=== PATIENT | male | born 1955 | race Caucasian/White ===

== ENCOUNTER 2017-08-29 21:16 | Observation (INO) | payer OTHER ==
[2017-08-29 21:18] VITALS: BP 148/81; PULSE 68; RESP 16; TEMP 98.5; O2SAT 97
[2017-08-29 22:10] VITALS: BP 188/89; PULSE 62; RESP 18; O2SAT 100
[2017-08-29] MEDS ORDERED: cefTRIAXone INJ 2,000 MG in SODIUM CHLORIDE 0.9% INJ 100 ML IV ONE (22:15)
[2017-08-29] MEDS ORDERED: SODIUM CHLOR 0.9% 1000 ML INJ 1,000 ML IV ONE (22:15)
[2017-08-29 22:34] VITALS: BP 176/83; PULSE 65; RESP 20; O2SAT 100
--- NOTE | 2017-08-29 22:35 | PD ---
HPI Chief Complaint: Headache Time Seen by Provider: 22:02 Travel History International Travel<30 days: No Contact w/Intl Traveler<30days: No Traveled to known affect area: No History of Present Illness HPI The patient is a 62 year old male who presents to the [facility] emergency department with a history of being told to come to the emergency department for treatment of viral meningitis. The patient reports a history of having a headache on last Tuesday that went away, however on Tuesday he then began to have low-grade fevers, chills, body aches, and headache that was unrelenting. He reports he has never had a headache like that previously. He reports that he has problems with neck pain that are chronic and were no worse than usual. He reports that he does have a history of an inflammatory arthritis treated with Plaquenil and methotrexate. The patient went to an emergency department in [place] where he currently is residing. The patient reports that he recently moved to the area. He reports that his primary care physician is Dr. Cy Vela area he has not established with a new primary care physician. The patient reports that he was admitted to the hospital and had a lumbar puncture done. He was told that he had a viral meningitis. The patient reports that he was discharged from the hospital, however he was called earlier today and told that he needed to come back immediately to the emergency department as his viral culture came back positive for herpes. He denies any rashes. He reports that his temperature at the highest was 99.6. He reports having nausea but no vomiting. He denies having any diarrhea. He denies having any cough or congestion. He denies having any sore throat. He reports that 2 years ago when he had general testing for sexually transmitted infections he did have an HSV2 antibody test that was positive. He denies having any outbreaks. On review of systems otherwise, the patient denies having any chest pain, shortness of breath, abdominal pain, urinary symptoms, one- sided weakness, slurred speech, paresthesias or numbness to the extremities, difficulty with word finding ability or facial droop. The patient reports that at the time of this headache began at its peak it is an 8 out of 10 in severity. He reports that the headache is down to 1-1/2 out of 10 in severity. 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 Arthritis: Yes Cancer: No Cardiovascular Problems: No Diabetes: No Diminished Hearing: No Endocrine: No Genitourinary: Yes (HX KIDNEY STONES X 3 EPISODES) Hepatitis: No Hiatal Hernia: No Immune Disorder: No Kidney Stones: Yes Musculoskeletal: Yes (L5 "BACK PROBLEMS"; DISK COMPRESSION - RIGHT SHOULDER TORN LABRUM) Neurologic: No Psychiatric: No Respiratory: No Immunizations Current: No Thyroid Disease: No Influenza Vaccination: No Past Surgical History Narrative Surgical The patient's past surgical history is significant for dental implants, tonsillectomy. Abdominal Surgery: No AICD: No Body Medical Devices: DENTAL IMPLANT X 2 Cardiac Surgery: No Ear Surgery: No Endocrine Surgery: No Eye Surgery: No Genitourinary Surgery: No Joint Replacement: No Oral Surgery: Yes (TONSILLECTOMY ) Pacemaker: No Thoracic Surgery: No Tonsillectomy: Yes Other Surgery: Yes Social History Alcohol Use: Yes ("seldom") Tobacco Use: No Substance Use: No Allergies-Medications (Allergen,Severity, Reaction): Coded Allergies: tramadol (Verified Allergy, Severe, Rash, 08/29/17) codeine (Unverified Adverse Reaction, Severe, GI UPSET/VOMITING X 24 HRS, 08/29/17) ITCHING Reported Meds & Prescriptions Reported Meds & Active Scripts Active Narrative Medication plaquenil, methotrexate Review of Systems Except as stated in HPI: all other systems reviewed are Neg General / Constitutional: Positive: Fever Eyes: No: Visual changes HENT: Positive: Headaches, Neck Pain, No: Neck Stiffness Cardiovascular: No: Chest Pain or Discomfort Respiratory: No: Shortness of Breath Gastrointestinal: Positive: Nausea, No: Abdominal Pain Genitourinary: No: Dysuria Musculoskeletal: No: Pain Skin: No Rash Neurologic: Positive: Headache, No: Weakness, Focal Abnormalities, Change in Mentation, Slurred Speech, Sensory Disturbance Psychiatric: No: Depression Endocrine: No: Polydipsia Hematologic/Lymphatic: No: Easy Bruising Physical Exam Narrative General: The patient is a well-developed well-nourished male in no acute distress. Head and Neck exam: Head is normocephalic atraumatic. Eyes: EOMI, pupils are equal round and reactive to light. Nose: Midline septum with pink mucous membranes Mouth: Dentition unremarkable. Moist mucus membranes. Posterior oropharynx is not erythematous. No tonsillar hypertrophy. Uvula midline. Airway patent. Neck: No palpable lymphadenopathy. No nuchal rigidity. No thyromegaly. No spinous process tenderness to palpation. No step-off or crepitus. No erythema or ecchymosis. Negative Brudzinski, negative Kernig sign. Cardiovascular: Regular rate and rhythm without murmurs, gallops, or rubs. Lungs: Clear to auscultation bilaterally. No wheezes, rhonchi, or rales. Abdomen: Soft, without tenderness to palpation in all 4 quadrants of the abdomen. No guarding, rebound, or rigidity. Normal bowel sounds are audible. No tenderness on palpation of McBurney's point. Extremities: No clubbing, cyanosis, or edema. 2+ pulses in all 4 extremities. No calf tenderness on palpation. Back: No spinous process tenderness to palpation. No costovertebral angle tenderness to palpation. Neurologic Exam: Grossly nonfocal. Skin Exam: No rash noted. Intact skin that is warm and dry. Data Data Last Documented VS Vital Signs Date Time Temp Pulse Resp B/P (MAP) Pulse Ox O2 Delivery O2 Flow Rate FiO2 08/29/17 22:34 65 20 176/83 (114) 100 Room Air 08/29/17 21:18 98.5 Orders Orders Electrocardiogram (08/29/17 22:03) Complete Blood Count With Diff (08/29/17 22:03) Comprehensive Metabolic Panel (08/29/17 22:03) Troponin I (08/29/17 22:03) Prothrombin Time / Inr (Pt) (08/29/17 22:03) Act Partial Throm Time (Ptt) (08/29/17 22:03) Blood Culture (08/29/17 22:03) C-Reactive Protein (Crp) (08/29/17 22:03) Lipase (08/29/17 22:03) Urinalysis - C+S If Indicated (08/29/17 22:03) Magnesium (Mg) (08/29/17 22:03) Chest, Single Ap (08/29/17 22:03) Iv Access Insert/Monitor (08/29/17 22:03) Ecg Monitoring (08/29/17 22:03) Oximetry (08/29/17 22:03) Lactic Acid Sepsis Protocol (08/29/17 22:03) Ceftriaxone Inj (Rocephin Inj) (08/29/17 22:15) Sodium Chlor 0.9% 1000 Ml Inj (Ns 1000 M (08/29/17 22:15) Acyclovir Inj (Zovirax Inj) (08/29/17 22:45) Admit Order (Ed Use Only) (08/29/17 22:43) Place In Observation (08/29/17 ) Vital Signs (Adult) [id number] (08/29/17 22:47) Diet Regular Basic (08/30/17 Breakfast) Activity Oob Ad Esperanza (08/29/17 22:47) Acyclovir Inj (Zovirax Inj) (08/30/17 08:00) Labs Laboratory Tests Test 08/29/17 22:20 08/29/17 22:35 08/29/17 22:45 White Blood Count 11.0 TH/MM3 Red Blood Count 4.83 MIL/MM3 Hemoglobin 15.2 GM/DL Hematocrit 43.8 % Mean Corpuscular Volume 90.7 FL Mean Corpuscular Hemoglobin 31.4 PG Mean Corpuscular Hemoglobin Concent 34.6 % Red Cell Distribution Width 13.6 % Platelet Count 297 TH/MM3 Mean Platelet Volume 7.4 FL Neutrophils (%) (Auto) 69.5 % Lymphocytes (%) (Auto) 20.1 % Monocytes (%) (Auto) 8.2 % Eosinophils (%) (Auto) 1.5 % Basophils (%) (Auto) 0.7 % Neutrophils # (Auto) 7.7 TH/MM3 Lymphocytes # (Auto) 2.2 TH/MM3 Monocytes # (Auto) 0.9 TH/MM3 Eosinophils # (Auto) 0.2 TH/MM3 Basophils # (Auto) 0.1 TH/MM3 CBC Comment DIFF FINAL Differential Comment Prothrombin Time 10.5 SEC Prothromb Time International Ratio 1.0 RATIO Activated Partial Thromboplast Time 26.1 SEC Blood Urea Nitrogen 16 MG/DL Creatinine 0.97 MG/DL Random Glucose 100 MG/DL Total Protein 7.3 GM/DL Albumin 3.6 GM/DL Calcium Level 8.9 MG/DL Magnesium Level 2.1 MG/DL Alkaline Phosphatase 74 U/L Aspartate Amino Transf (AST/SGOT) 19 U/L Alanine Aminotransferase (ALT/SGPT) 28 U/L Total Bilirubin 0.5 MG/DL Sodium Level 136 MEQ/L Potassium Level 3.8 MEQ/L Chloride Level 104 MEQ/L Carbon Dioxide Level 25.5 MEQ/L Anion Gap 7 MEQ/L Estimat Glomerular Filtration Rate 78 ML/MIN Troponin I LESS THAN 0.02 NG/ML C-Reactive Protein 0.78 MG/DL Lipase 90 U/L Lactic Acid Level 0.7 mmol/L Urine Color YELLOW Urine Turbidity CLEAR Urine pH 5.0 Urine Specific [place] 1.021 Urine Protein TRACE mg/dL Urine Glucose (UA) NEG mg/dL Urine Ketones NEG mg/dL Urine Occult Blood NEG Urine Nitrite NEG Urine Bilirubin NEG Urine Urobilinogen LESS THAN 2.0 MG/DL Urine Leukocyte Esterase NEG Urine RBC LESS THAN 1 /hpf Urine WBC 2 /hpf Urine Mucus FEW /lpf Microscopic Urinalysis Comment CULT NOT INDICATED MDM Medical Decision Making Medical Screen Exam Complete: Yes Emergency Medical Condition: Yes Medical Record Reviewed: Yes Interpretation(s) Last Impressions Chest X-Ray 08/29/172202 Signed Impressions: Service Date/Time: Tuesday, August 29, 2017 22:09 - CONCLUSION: No acute abnormality is seen. Focal densities are seen over the bases likely related to nipple shadows. These could be further evaluated with a repeat chest x-ray with nipple markers. Mario Cid MD Differential Diagnosis Viral meningitis, versus HSV encephalitis Narrative Course During the course of the patients emergency department visit, the patients history, examination, and differential diagnosis were reviewed with the patient. The patient had IV access obtained and blood work sent for analysis. The patient was placed on a slusher operator with oximetry and blood pressure monitoring. An ECG was done on arrival. The patient's ECG shows a sinus rhythm heart rate of 61, no acute ST segment elevation or depression. T waves are inverted in V1. The patient's records will be obtained from the facility that did the lumbar puncture. A call was placed out to the patient's primary care physician. I did speak to Dr. Vela. He is familiar with the patient as well as the patient's recent history of the patient did call his office regarding his recent admission. He agreed to admit the patient for continued evaluation and treatment. The patient was initially provided acyclovir 10 mg/kg IV times first dose, Rocephin 2 g IV were also administered while records were obtained from the other facility to corroborate negative bacterial cultures on this patient's lumbar puncture. The patients laboratory studies were reviewed and remarkable for a white count of 11, hemoglobin 15.2, platelets 297 with 8.2 monocytes, CMP is remarkable for a GFR 78, lactic acid 0.7, troponin I less than 0.02, C-reactive protein 0.78, lipase 90, PT PTT within normal limits. Urinalysis is unremarkable. Radiology studies were reviewed and remarkable for a chest x-ray that shows no acute abnormality. The patients results were discussed with the patient, including the plan of care. I explained that further testing and/ or monitoring is indicated based on the patients history, examination, and/ or laboratory findings. Therefore, I recommended admission for additional evaluation. The patient expressed understanding and was agreeable with this plan. The patient was admitted to the hospital in stable condition and [facility] Physician Communication Physician Communication The patient's case is discussed with Dr. Vela he did agree to admit the patient for further evaluation and treatment at this time. Diagnosis Primary Impression: Herpes encephalitis Admitting Information Admitting Physician Requests: Admit Caroline Garcia MD Aug 29, 2017 22:35
[2017-08-29] MEDS ORDERED: ACYCLOVIR IV ONE (22:45)
[2017-08-29] MEDS ORDERED: SODIUM CHLORIDE 0.9% IV ONE (22:45)
--- NOTE | 2017-08-29 22:54 | RADRPT ---
EXAM DATE/TIME: 08/29/2017 22:09 [facility] COMPARISON: No previous studies available for comparison. INDICATIONS : Cough and headache. MEDICAL HISTORY : None. SURGICAL HISTORY : None. ENCOUNTER: Initial ACUITY: 1 day PAIN SCORE: 0/10 LOCATION: Bilateral chest FINDINGS: The heart size is normal. The lungs are free of focal consolidation. There are questionable focal den sities projecting over the bases bilaterally. These symmetric densities are likely related to nipple shadows. No effusion is seen. CONCLUSION: No acute abnormality is seen. Focal densities are seen over the bases likely related to nipple shadow s. These could be further evaluated with a repeat chest x-ray with nipple markers. Mario Cid MD on August 29, 2017 at 22:50 Board Certified Radiologist. This report was verified electronically.
[2017-08-29 22:59] LABS: AUTOMATED NEUTROPHIL # 7.7 TH/MM3 (1.8-7.7); BASOPHIL # 0.1 TH/MM3 (0-0.2); BASOPHIL % 0.7 % (0.0-2.0); EOSINOPHIL # 0.2 TH/MM3 (0-0.4); EOSINOPHIL % 1.5 % (0.0-4.0); HEMATOCRIT 43.8 % (39.0-51.0); HEMO FLAGS DIFF FINAL; LYMPH % 20.1 % (9.0-44.0); LYMPHOCYTE # 2.2 TH/MM3 (1.0-4.8); MEAN CELL VOLUME 90.7 FL (80.0-100.0); MEAN CORPUSCULAR HEMOGLOBIN 31.4 PG (27.0-34.0); MEAN CORPUSCULAR HGB CONC 34.6 % (32.0-36.0); MONO % 8.2 % (0.0-8.0); NEUT % 69.5 % (16.0-70.0); PLATELET COUNT 297 TH/MM3 (150-450); RED BLOOD COUNT 4.83 MIL/MM3 (4.50-5.90); RED CELL DISTRIBUTION WIDTH 13.6 % (11.6-17.2)
[2017-08-29] MEDS ORDERED: cloNIDine HCL 0.1 MG TAB PO PRN (23:00)
[2017-08-29] MEDS ORDERED: ACETAMINOPHEN 500 MG CPLT PO PRN (23:00)
[2017-08-29] MEDS ORDERED: TEMAZEPAM 15 MG CAP PO PRN (23:00)
[2017-08-29 23:03] LABS: BLOOD, URINE NEG (NEG); COMMENT (UR) CULT NOT INDICATED; CULTURE IF INDICATED CULT NOT INDICATED; GLUCOSE,URINE NEG (NEG); KETONE, URINE NEG (NEG); MUCUS URINE FEW /lpf (OCC); NITRITE,URINE NEG (NEG); URINE COLOR YELLOW (YELLW/STRAW)
[2017-08-29 23:10] LABS: APTT (PATIENT) 26.1 SEC (24.3-30.1); PROTHROMBIN TIME - PATIENT 10.5 SEC (9.8-11.6)
[2017-08-29 23:33] LABS: ALKALINE PHOSPHATASE 74 U/L (45-117); TOTAL BILIRUBIN ADULT 0.5 MG/DL (0.2-1.0)
[2017-08-29 23:37] LABS: ALT (GPT) 28 U/L (12-78); ANION GAP 7 MEQ/L (5-15); AST (GOT) 19 U/L (15-37); BICARBONATE 25.5 MEQ/L (21.0-32.0); BLOOD UREA NITROGEN 16 MG/DL (7-18); CHLORIDE 104 MEQ/L (98-107); GLOMERULAR FILTRATION RATE 78 ML/MIN (>89); MAGNESIUM 2.1 MG/DL (1.5-2.5); POTASSIUM 3.8 MEQ/L (3.5-5.1); SODIUM (NA) 136 MEQ/L (136-145)
[2017-08-30 00:44] VITALS: BP 148/83; PULSE 57; RESP 19; TEMP 97.7; O2SAT 100
[2017-08-30 03:20] VITALS: BP 143/81; PULSE 62; RESP 19; TEMP 98.1; O2SAT 99
[2017-08-30 07:57] VITALS: BP 141/79; PULSE 55; RESP 18; TEMP 97.6; O2SAT 99
--- NOTE | 2017-08-30 08:28 | HHI.HP ---
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 Patient was in his normal state of health until last Tuesday when he began to have a headache, generalized malaise with nausea and headache. The headache initially resolved then returned on Tuesday. Patient had a constant headache from Tuesday through Tuesday described as severe like no headache he has ever had before with associated chills therefore who proceeded to the emergency department in [place]. Patient was hospitalized had a lumbar puncture initially discharged with the diagnosis of viral meningitis. Patient then received a call from hospital in [place] telling him that the lumbar puncture was positive for herpes simplex virus requesting him to come back to the hospital for PICC line placement and IV acyclovir. Patient reports he knows the doctors in this area as he is from this area and came here for further evaluation and treatment. Acyclovir IV was started in the emergency department. At this time patient reports he feeling well no longer has headache, fevers, chills, nausea or vomiting. Patient also denies shortness of breath or chest pain. Review of Systems Constitutional: DENIES: Fatigue, Fever, Chills Eyes: DENIES: Blurred vision, Diplopia, Eye pain, Vision loss, Photosensitivity , Double Vision Ears, nose, mouth, throat: DENIES: Hearing loss, Vertigo, Throat pain Respiratory: DENIES: Cough, Sputum production, Shortness of breath Cardiovascular: DENIES: Chest pain, Palpitations, Dyspnea on Exertion Gastrointestinal: DENIES: Abdominal pain, Constipation, Diarrhea Musculoskeletal: DENIES: Joint pain, Back pain, Neck pain Neurologic: DENIES: Abnormal gait, Headache, Localized weakness, Speech Problems Psychiatric: DENIES: Anxiety, Confusion, Depression Past Family Social History Past Medical History 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, degenerative disc disease s/p L5 discectomy, kidney stones and inflammatory arthritis currently taking Plaquenil and methotrexate Past Surgical History L5 discectomy, dental implants and tonsillectomy Reported Medications Plaquenil 200 mg twice a day Methotrexate 6 mg IM once a week Folic acid 1 mg 6 days a week on the days he does not take the Methotrexate Allergies: Coded Allergies: tramadol (Verified Allergy, Severe, Rash, 08/29/17) codeine (Unverified Adverse Reaction, Severe, GI UPSET/VOMITING X 24 HRS, 08/29/17) ITCHING Active Ordered Medications Current Medications Medications (Trade) Dose Ordered Sig/Darshan Route Start Time Stop Time Status Last Admin Acyclovir Sodium 820 mg/Sodium Chloride 150 ml @ 150 mls/hr Q8H IV 08/30/17 08:00 (Catapres) 0.1 mg Q6H PRN PO 08/29/17 23:00 (Restoril) 15 mg HS PRN PO 08/29/17 23:00 (Tylenol) 500 mg Q6H PRN PO 08/29/17 23:00 Family History Father at 71 secondary to pancreatic cancer Mother is 94 alive does have some history of heart disease Social History Patient from [facility] currently living in [facility] EtOH use approximately one drink per month Denies tobacco use now or in the past Denies illicit drug use Physical Exam Vital Signs Vital Signs Date Time Temp Pulse Resp B/P (MAP) Pulse Ox O2 Delivery O2 Flow Rate FiO2 08/30/17 07:57 97.6 55 18 141/79 (99) 99 08/30/17 03:20 98.1 62 19 143/81 (101) 99 08/30/17 00:44 97.7 57 19 148/83 (104) 100 08/29/17 22:34 65 20 176/83 (114) 100 Room Air 08/29/17 22:10 62 18 188/89 (122) 100 Room Air 08/29/17 21:18 98.5 68 16 148/81 (103) 97 Room Air Physical Exam GENERAL: This is a well-nourished, well-developed patient, in no apparent distress. SKIN: No rashes, ecchymoses or lesions. Cool and dry. HEAD: Atraumatic. Normocephalic. No temporal or scalp tenderness. EYES: Extraocular motions intact. No scleral icterus. No injection or drainage. ENT: Nose without bleeding, purulent drainage or septal hematoma. Throat without erythema, tonsillar hypertrophy or exudate. Uvula midline. Airway patent. NECK: Trachea midline. No JVD or lymphadenopathy. Supple, nontender, no meningeal signs. CARDIOVASCULAR: Bradycardic without murmurs, gallops, or rubs. RESPIRATORY: Clear to auscultation. Breath sounds equal bilaterally. No wheezes , rales, or rhonchi. GASTROINTESTINAL: Abdomen soft, non-tender, nondistended. No hepato-splenomegaly , or palpable masses. No guarding. MUSCULOSKELETAL: Extremities without clubbing, cyanosis, or edema. No joint tenderness, effusion, or edema noted. No calf tenderness. Negative Homans sign bilaterally. NEUROLOGICAL: Awake and alert. No focal deficits appreciated. Motor and sensory grossly within normal limits. Five out of 5 muscle strength in all muscle groups. Normal speech. Laboratory Laboratory Tests Test 08/29/17 22:20 08/29/17 22:35 08/29/17 22:45 White Blood Count 11.0 Red Blood Count 4.83 Hemoglobin 15.2 Hematocrit 43.8 Mean Corpuscular Volume 90.7 Mean Corpuscular Hemoglobin 31.4 Mean Corpuscular Hemoglobin Concent 34.6 Red Cell Distribution Width 13.6 Platelet Count 297 Mean Platelet Volume 7.4 Neutrophils (%) (Auto) 69.5 Lymphocytes (%) (Auto) 20.1 Monocytes (%) (Auto) 8.2 Eosinophils (%) (Auto) 1.5 Basophils (%) (Auto) 0.7 Neutrophils # (Auto) 7.7 Lymphocytes # (Auto) 2.2 Monocytes # (Auto) 0.9 Eosinophils # (Auto) 0.2 Basophils # (Auto) 0.1 CBC Comment DIFF FINAL Differential Comment Prothrombin Time 10.5 Prothromb Time International Ratio 1.0 Activated Partial Thromboplast Time 26.1 Blood Urea Nitrogen 16 Creatinine 0.97 Random Glucose 100 Total Protein 7.3 Albumin 3.6 Calcium Level 8.9 Magnesium Level 2.1 Alkaline Phosphatase 74 Aspartate Amino Transf (AST/SGOT) 19 Alanine Aminotransferase (ALT/SGPT) 28 Total Bilirubin 0.5 Sodium Level 136 Potassium Level 3.8 Chloride Level 104 Carbon Dioxide Level 25.5 Anion Gap 7 Estimat Glomerular Filtration Rate 78 Troponin I LESS THAN 0.02 C-Reactive Protein 0.78 Lipase 90 Lactic Acid Level 0.7 Urine Color YELLOW Urine Turbidity CLEAR Urine pH 5.0 Urine Specific [place] 1.021 Urine Protein TRACE Urine Glucose (UA) NEG Urine Ketones NEG Urine Occult Blood NEG Urine Nitrite NEG Urine Bilirubin NEG Urine Urobilinogen LESS THAN 2.0 Urine Leukocyte Esterase NEG Urine RBC LESS THAN 1 Urine WBC 2 Urine Mucus FEW Microscopic Urinalysis Comment CULT NOT INDICATED Date/Time Source Procedure Growth Status 08/29/17 22:35 Blood Peripheral Aerobic Blood Culture Pending Received 08/29/17 22:35 Blood Peripheral Anaerobic Blood Culture Pending Received Result Diagram: 08/29/17221908/29/172219 Imaging Last Impressions Chest X-Ray 08/29/172202 Signed Impressions: Service Date/Time: Tuesday, August 29, 2017 22:09 - CONCLUSION: No acute abnormality is seen. Focal densities are seen over the bases likely related to nipple shadows. These could be further evaluated with a repeat chest x-ray with nipple markers. MD Ranjit Meek VTE Risk Assessment Caprini VTE Risk Assessment: No/Low Risk (score <= 1) Caprini Risk Assessment Model Point Value = 1 Point Value = 2 Point Value = 3 Point Value = 5 Age 41-60 Minor surgery BMI > 25 kg/m2 Swollen legs Varicose veins or History of unexplained or recurrent spontaneous Oral contraceptives or hormone replacement Sepsis (< 1 month) Serious lung disease, including pneumonia (< 1 month) Abnormal pulmonary function Acute myocardial infarction Congestive heart failure (< 1 month) History of inflammatory bowel disease Medical patient at bed rest Age 61-74 Arthroscopic surgery Major open surgery (> 45 min) Laparoscopic surgery (> 45 min) Malignancy Confined to bed (> 72 hours) Immobilizing plaster cast Central venous access Age >= 75 History of VTE Family history of VTE Factor V Leiden Prothrombin [id number] Lupus anticoagulant Anticardiolipin antibodies Elevated serum homocysteine Heparin-induced thrombocytopenia Other congenital or acquired thrombophilia Stroke (< 1 month) Elective arthroplasty Hip, pelvis, or leg fracture Acute spinal cord injury (< 1 month) Prophylaxis Regimen Total Risk Factor Score Risk Level Prophylaxis Regimen 0-1 Low Early ambulation 2 Moderate Order ONE of the following: *Sequential Compression Device (SCD) *Heparin 5000 units SQ BID 3-4 Higher Order ONE of the following medications: *Heparin 5000 units SQ TID *Enoxaparin/Lovenox 40 mg SQ daily (WT < 150 kg, CrCl > 30 mL/min) *Enoxaparin/Lovenox 30 mg SQ daily (WT < 150 kg, CrCl > 10-29 mL/min) *Enoxaparin/Lovenox 30 mg SQ BID (WT < 150 kg, CrCl > 30 mL/min) AND/OR *Sequential Compression Device (SCD) 5 or more Highest Order ONE of the following medications: *Heparin 5000 units SQ TID (Preferred with Epidurals) *Enoxaparin/Lovenox 40 mg SQ daily (WT < 150 kg, CrCl > 30 mL/min) *Enoxaparin/Lovenox 30 mg SQ daily (WT < 150 kg, CrCl > 10-29 mL/min) *Enoxaparin/Lovenox 30 mg SQ BID (WT < 150 kg, CrCl > 30 mL/min) AND *Sequential Compression Device (SCD) Assessment and Plan Problem List: (1) Meningitis due to herpes simplex virus ICD Codes: B00.3 - Herpesviral meningitis Plan: 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 Patient then received a call from hospital in [place] telling him that the lumbar puncture was positive for herpes simplex virus requesting him to come back to the hospital for PICC line placement and IV acyclovir. Patient reports he knows the doctors in this area as he is from this area and came here for further evaluation and treatment. - Records reviewed from [facility]- lumbar puncture reveals a CSF positive for herpes simplex virus type II - Acyclovir IV was started in the emergency department. (08/29) - Continue acyclovir IV every 8 hours - Supportive care - Monitor neuro status Inflammatory arthritis - Patient takes Platinol and methotrexate at home will hold at this time due to immunosuppression - Continue folic acid - Tylenol as needed for pain Degenerative disc disease status post L5 discectomy - Patient is not in pain at this time - Continue to monitor DVT prophylaxis with SCDs and Harlan's After PICC line placed plan to DC home with home healthcare and IV acyclovir Q8H x 14 days (2) Inflammatory arthritis ICD Codes: M19.90 - Unspecified osteoarthritis, unspecified site (3) DDD (degenerative disc disease), lumbar ICD Codes: M51.36 - Other intervertebral disc degeneration, lumbar region Assessment and Plan Patient examined. Assessment and plan formulated with Rona Haq PA-C. I agree with the above. apparently herpes meningitis based on outside hospital csf results and presentation. possible encephalitis but now pt is totally oriented and h/a absent. I discussed with our ID physicians and pcp. We will get mri brain, picc line, plan for 2 weeks iv acyclovir with [facility] and then an additional week of valtrex. Will have ID f/u and pcp f/u this week. Pt agrees to plan. of note the pt had blood cx at outside hospital and they were negative. we have no reason to hold up picc placement. We don't suspect bacteremia. will notify picc team. Rona Haq Aug 30, 2017 08:28 David Velasquez MD Aug 30, 2017 14:48
[2017-08-30] MEDS: ACYCLOVIR IV SCH ×2 (09:17→17:30)
[2017-08-30] MEDS: SODIUM CHLORIDE 0.9% IV SCH ×2 (09:17→17:30)
--- NOTE | 2017-08-30 10:05 | HHI.FF ---
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 My clinical findings support the need for the requested home health care services because: Patient need IV medication Q8H Infection w/ risk of complications Injectable med education/admin I certify that my clinical findings support that this patient is homebound because: Patient will need IV medication Q8H for 2 weeks Impaired cognitive ability/safety Rona Hqa Aug 30, 2017 10:05
[2017-08-30 11:45] VITALS: BP 130/75; PULSE 61; TEMP 98; O2SAT 99
[2017-08-30] MEDS ORDERED: GADODIAMIDE PF 287 MG/ML 20 ML VIAL (for RAD MRI) IVCONTRAST ONE (12:16)
--- NOTE | 2017-08-30 12:33 | RADRPT ---
EXAM DATE/TIME: 08/30/2017 12:00 [facility] COMPARISON: No previous studies available for comparison. INDICATIONS : Meningitis. Cephalgia for 9 days. CONTRAST: 16 cc Omniscan (gadodiamide) IV MEDICAL HISTORY : Renal calculi. Herpes type II. Degenerative disc disease. SURGICAL HISTORY : Tonsillectomy. Discectomy, lumbar. ENCOUNTER: Subsequent ACUITY: 1 week PAIN SCORE: 6/10 LOCATION: head. TECHNIQUE: Multiplanar, multisequence MRI of the brain was performed both prior to and following the administrat ion of paramagnetic contrast. FINDINGS: CEREBRUM: The ventricles are normal for age. No evidence of midline shift, mass lesion, hemorrhage or acute in farction. No extraaxial fluid collections are seen. The pituitary gland and suprasellar cistern are normal in configuration. WHITE MATTER: No significant signal abnormalities are seen in the white matter. POSTERIOR FOSSA: The cerebellum and brainstem are intact. The 4th ventricle is midline. The cerebellopontine angle is unremarkable. The cerebellar tonsils are normal in position. DIFFUSION IMAGING: No focal areas of restricted diffusion are seen. No evidence of acute infarction. EXTRACRANIAL: Small mucous retention cyst in the left maxillary sinus. Orbits unremarkable. POST-CONTRAST: No abnormal areas of parenchymal or dural enhancement. No evidence of blood-brain barrier breakdown. CONCLUSION: No acute intracranial findings Mario Mcintyre MD on August 30, 2017 at 12:28 Board Certified Radiologist. This report was verified electronically.
--- NOTE | 2017-08-30 14:13 | HHI.FF ---
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 [] May leave port accessed during therapy. [] May leave peripheral site accessed for duration of therapy. [x] If patient has SOB or respiratory distress, check oxygen saturation. If less than 90% or clinical signs of respiratory distress, administer oxygen at 2 L/min. via nasal cannula and notify physician. [x] Anaphylaxis/Reaction orders: * Stop infusion. * Keep IV line open with saline flush. * Notify physician. * Monitor vital signs every 15 minutes until symptoms resolve. * Check Oxygen saturation; Oxygen at 2 L/min. via nasal cannula if less than 90% or clinical signs of respiratory distress. * Administer diphenhydramine (Benadryl) 25 mg IV STAT, (unless patient has received as pre-med). May repeat once, if necessary. * Solu-Cortef 250 mg IVP over 30-60 seconds, use 100 mg vials for each dissolution. * Epinephrine (1mg/1 ml) 0.3 mg subcutaneously or IVP now with any signs of respiratory distress. * Check with physician for new additional pre-med orders if patient is re- challenged or re-treated. [x] May remove PICC line when treatment complete, after confirming with Physician. [x] If the patient is admitted to the hospital, the ED, or transferred via [facility] , complete transfer form including medication reconciliation order sheet. Laboratory Tests Weekly Labs: CBC w/diff, CMP Eva,David L MD Aug 30, 2017 14:12
[2017-08-30 16:03] VITALS: BP 132/75; PULSE 61; RESP 18; TEMP 98.1; O2SAT 98
--- NOTE | 2017-08-30 16:34 | EKG ---
Date Performed: 08/29/2017 Time Performed: 22:29:23 PTAGE: 62 years EKG: Sinus rhythm NORMAL ECG NO PREVIOUS TRACING DOCTOR: Samantha Hernández Interpretating Date/Time 08/30/2017 16:32:57
[2017-08-30 20:06] VITALS: BP 120/66; PULSE 62; RESP 20; TEMP 98; O2SAT 98
[2017-08-31 00:13] VITALS: BP 117/66; PULSE 55; RESP 19; TEMP 97.7; O2SAT 98
[2017-08-31] MEDS: SODIUM CHLORIDE 0.9% IV SCH ×2 (01:00→08:51)
[2017-08-31] MEDS: ACYCLOVIR IV SCH ×2 (01:00→08:51)
[2017-08-31 03:38] VITALS: BP 122/67; PULSE 57; RESP 18; TEMP 98.1; O2SAT 98
[2017-08-31 07:13] VITALS: BP 126/78; PULSE 59; RESP 20; TEMP 97.6; O2SAT 97
--- NOTE | 2017-08-31 08:09 | HHI.PR ---
Subjective Remarks Pt complains this morning of a slight global headache but he thinks that this may be a caffeine headache because he typically drinks several cups of coffee in the morning but hasn't had more than one cup in the last 2 days. Denies any chills, fevers, nausea/vomiting. Objective Vitals Vital Signs Date Time Temp Pulse Resp B/P (MAP) Pulse Ox O2 Delivery O2 Flow Rate FiO2 08/31/17 07:13 97.6 59 20 126/78 (94) 97 08/31/17 03:38 98.1 57 18 122/67 (85) 98 08/31/17 00:13 97.7 55 19 117/66 (83) 98 08/30/17 20:06 98.0 62 20 120/66 (84) 98 08/30/17 16:03 98.1 61 18 132/75 (94) 98 08/30/17 11:45 98.0 61 130/75 (93) 99 Result Diagram: 08/29/170 08/29/17 2220 Other Results Laboratory Tests Test 08/29/17 22:20 08/29/17 22:35 08/29/17 22:45 White Blood Count 11.0 TH/MM3 Red Blood Count 4.83 MIL/MM3 Hemoglobin 15.2 GM/DL Hematocrit 43.8 % Mean Corpuscular Volume 90.7 FL Mean Corpuscular Hemoglobin 31.4 PG Mean Corpuscular Hemoglobin Concent 34.6 % Red Cell Distribution Width 13.6 % Platelet Count 297 TH/MM3 Mean Platelet Volume 7.4 FL Neutrophils (%) (Auto) 69.5 % Lymphocytes (%) (Auto) 20.1 % Monocytes (%) (Auto) 8.2 % Eosinophils (%) (Auto) 1.5 % Basophils (%) (Auto) 0.7 % Neutrophils # (Auto) 7.7 TH/MM3 Lymphocytes # (Auto) 2.2 TH/MM3 Monocytes # (Auto) 0.9 TH/MM3 Eosinophils # (Auto) 0.2 TH/MM3 Basophils # (Auto) 0.1 TH/MM3 CBC Comment DIFF FINAL Differential Comment Prothrombin Time 10.5 SEC Prothromb Time International Ratio 1.0 RATIO Activated Partial Thromboplast Time 26.1 SEC Blood Urea Nitrogen 16 MG/DL Creatinine 0.97 MG/DL Random Glucose 100 MG/DL Total Protein 7.3 GM/DL Albumin 3.6 GM/DL Calcium Level 8.9 MG/DL Magnesium Level 2.1 MG/DL Alkaline Phosphatase 74 U/L Aspartate Amino Transf (AST/SGOT) 19 U/L Alanine Aminotransferase (ALT/SGPT) 28 U/L Total Bilirubin 0.5 MG/DL Sodium Level 136 MEQ/L Potassium Level 3.8 MEQ/L Chloride Level 104 MEQ/L Carbon Dioxide Level 25.5 MEQ/L Anion Gap 7 MEQ/L Estimat Glomerular Filtration Rate 78 ML/MIN Troponin I LESS THAN 0.02 NG/ML C-Reactive Protein 0.78 MG/DL Lipase 90 U/L Lactic Acid Level 0.7 mmol/L Urine Color YELLOW Urine Turbidity CLEAR Urine pH 5.0 Urine Specific [place] 1.021 Urine Protein TRACE mg/dL Urine Glucose (UA) NEG mg/dL Urine Ketones NEG mg/dL Urine Occult Blood NEG Urine Nitrite NEG Urine Bilirubin NEG Urine Urobilinogen LESS THAN 2.0 MG/DL Urine Leukocyte Esterase NEG Urine RBC LESS THAN 1 /hpf Urine WBC 2 /hpf Urine Mucus FEW /lpf Microscopic Urinalysis Comment CULT NOT INDICATED Imaging Last Impressions Brain MRI 08/30/17 0000 Signed Impressions: Service Date/Time: Wednesday, August 30, 2017 12:00 - CONCLUSION: No acute intracranial findings Mario Mcintyre MD Chest X-Ray 08/29/172202 Signed Impressions: Service Date/Time: Tuesday, August 29, 2017 22:09 - CONCLUSION: No acute abnormality is seen. Focal densities are seen over the bases likely related to nipple shadows. These could be further evaluated with a repeat chest x-ray with nipple markers. 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 He then received a call from hospital in [place] telling him that the lumbar puncture was positive for herpes simplex virus requesting him to come back to the hospital for PICC line placement and IV acyclovir. - Records reviewed from [facility]- lumbar puncture reveals a CSF positive for herpes simplex virus type II - Pt presented to the ED at [facility] on 08/29 for IV acyclovir for possible encephalitis but now pt is totally oriented. - Acyclovir IV was started in the emergency department on (08/29) - Continue acyclovir IV every 8 hours - Of note the pt had blood cx at outside hospital and they were negative. We have no reason to hold up PICC placement. We don't suspect bacteremia. - Awaiting PICC line placement today - The case was discussed between Dr. Velasquez and our ID physicians and PCP. - MRI Brain (08/30) is negative. - Pt will need outpt ID f/u and pcp f/u this week. - We will arrange for C for IV Acyclovir x 2 weeks and then an additional week of Valtrex - Supportive care - Monitor neuro status DVT prophylaxis with SCDs and Harlan's (2) Inflammatory arthritis ICD Codes: M19.90 - Unspecified osteoarthritis, unspecified site Status: Chronic Plan: - Patient takes Platinol and methotrexate at home will hold at this time due to immunosuppression - Continue folic acid - Tylenol as needed for pain (3) DDD (degenerative disc disease), lumbar ICD Codes: M51.36 - Other intervertebral disc degeneration, lumbar region Status: Chronic Plan: - Patient is not in pain at this time - Continue to monitor Assessment and Plan Patient examined. Assessment and plan formulated with Tonie Villalba PA-C. I agree with the above. herpes type 2 meningitis/encephalitis. d/c with h[facility], picc, acyclovir for at least 2 weeks then probably another week of valtrex. Pt feels well. MRI brain neg. Labs from outside hospital confirm the positive test. Tonie Villalba Aug 31, 2017 08:08 David Velasquez MD Aug 31, 2017 15:21
--- NOTE | 2017-08-31 11:02 | RADRPT ---
EXAM DATE/TIME: 08/31/2017 10:16 [facility] COMPARISON: CHEST SINGLE AP, August 29, 2017, 22:09. INDICATIONS : Post PICC line placement. MEDICAL HISTORY : Renal calculi. Herpes type II. Degenerative disc disease. SURGICAL HISTORY : Tonsillectomy. Discectomy, lumbar. ENCOUNTER: Subsequent ACUITY: 1 day PAIN SCORE: 0/10 LOCATION: Bilateral chest FINDINGS: Right arm PICC line is present in good position with tip overlying SVC. Lungs appear grossly clear. T here is no evidence of effusion. Cardiac contours are satisfactory. CONCLUSION: Satisfactory PICC line position. Mario Mcintyre MD on August 31, 2017 at 10:58 Board Certified Radiologist. This report was verified electronically.
--- NOTE | 2017-08-31 11:10 | HHI.DCPOC ---
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 Vela on 09/02/17 @ 10:45AM - Dr. Vela is arranging followup with Dr. Farideh Person. Directions to Meet Your Goals Take your medications as prescribed Follow your dietary instruction Follow activity as directed Keep your appointments as scheduled Take your immunizations and boosters as scheduled If your symptoms worsen call your PCP, if no PCP go to Urgent Care Center or Emergency Room Smoking is Dangerous to Your Health. Avoid second hand smoke Call the 24-hour hour crisis hotline for domestic abuse at Tonie Villalba Aug 31, 2017 11:10
[2017-08-31 11:20] VITALS: BP 135/74; PULSE 68; RESP 20; TEMP 96.3; O2SAT 96
== END 2017-08-31 13:22 | disposition home or self-care (01) ==
LOC: NEPC 21:16 → UNDOADMIN 22:46 → NEDA 22:46 → INTOOBSV 22:55 → NEPGCP 08-30 00:35
PROVIDERS: ADMIT Hospitalist; ATTEND Hospitalist
DX: B00.3 Herpesviral meningitis (principal); M06.4 Inflammatory polyarthropathy; M51.36 Other intervertebral disc degeneration, lumbar region; R79.1 Abnormal coagulation profile; R79.89 Other specified abnormal findings of blood chemistry; R51 Headache; M54.2 Cervicalgia; Z79.899 Other long term (current) drug therapy; Z87.442 Personal history of urinary calculi
CPT/HCPCS: 36569; 70553; 71010; 76937; 80053; 81001; 83605; 83690; 83735; 84484; 85025; 85610; 85730; 86140; 87040; 93005; 96361; 96365; 96366; 96376; 99285; A9579; G0378; J0133; J0696; J7030